=== PATIENT | female | born 1970 | race Caucasian/White ===

== ENCOUNTER 2019-09-01 12:59 | Emergency (ER) | payer OTHER ==
[~2019-09-01 12:59] MED LIST: Acetaminophen 500 MG TAB ONE; Ondansetron PF 4 MG/2 ML Vial ONE
[2019-09-01] MEDS ORDERED: Ketorolac Tromethamine 30 MG/ML VIAL ONE (13:29)
[2019-09-01 13:53] LABS: ALT (SGPT) 18 U/L (8-55); AST (SGOT) 13 U/L (5-34); Albumin 4.9 g/dL (3.5-5.0); Alkaline Phosphatase 90 U/L (40-110); Anion Gap 18 mmol/L (10-20); BUN (Urea Nitrogen) 8 mg/dL (7.0-18.7); Bilirubin, Total 0.8 mg/dL (0.2-1.2); Calc. Creatinine Clearance 0 mL/min (70-130); Calcium 10.1 mg/dL (7.8-10.44); Carbon Dioxide 21 mmol/L (22-29); Chloride 105 mmol/L (98-107); Estimated GFR-MDRD 78; Glucose 89 mg/dL (70-105); Potassium 3.5 mmol/L (3.5-5.1); Protein, Total 7.9 g/dL (6.0-8.3); Sodium 140 mmol/L (136-145)
[2019-09-01 13:54] LABS: CKMB 0.4 ng/mL (0-6.6); Troponin I Less than 0.010 ng/mL (< 0.028)
[2019-09-01 13:58] LABS: Hemoglobin 14.5 g/dL (12.0-16.0); Red Blood Cell (RBC) Count 4.63 mill/uL (4.20-5.40); White Blood Cell (WBC) Count 10.2 thou/uL (4.8-10.8)
[2019-09-01 13:59] LABS: #Lymphocytes 3.8 thou/uL (1.20-3.40); #Monocytes 0.5 thou/uL (0.11-0.59); #Neutrophils 5.7 thou/uL (1.40-6.50); %Basophils 1.2 % (0.0-1.0); %Lymphocytes 37.5 % (21.0-51.0); %Monocytes 4.6 % (0.0-10.0); %Neutrophils 55.7 % (42.0-75.0); Mean Corpuscular HGB CONC 32.1 g/dL (32.0-36.0); Mean Corpuscular Hemoglobin 31.3 pg (27.0-31.0); Mean Corpuscular Volume 97.6 fL (78.0-98.0); Mean Platelet Volume 8.2 fL (7.4-10.4); Platelet Count 298 thou/uL (130-400)
[2019-09-01 14:00] LABS: #Basophils 0.1 thou/uL (0.0-0.2); #Eosinphils 0.1 thou/uL (0.0-0.7)
--- NOTE | 2019-09-01 15:24 | RAD ---
PA AND LATERAL CHEST: Date: 09/01/19 HISTORY: Chest pain x2 days. FINDINGS: Heart size and mediastinum are within normal limits. Lungs are clear of infiltrates. No significant b patricia findings. IMPRESSION: No active intrathoracic disease. POS: [facility]
== END 2019-09-01 18:00 | disposition home or self-care (01) ==
LOC: MADERS 12:59
DX: J11.1 Influenza due to unidentified influenza virus with other respiratory manifestations (principal); F41.9 Anxiety disorder, unspecified; K74.60 Unspecified cirrhosis of liver
CPT/HCPCS: 71046; 80053; 82553; 84484; 85025; 87081; 87430; 87804; 96374; 96375; J1885; J2405

== ENCOUNTER 2020-09-05 14:19 | Emergency (ER) | payer OTHER ==
[2020-09-05 14:47] LABS: Bilirubin Negative (Negative); Blood, Urine Negative (Negative); Clarity Clear (Clear); Glucose, Urine (Dipstick) Negative (Negative); Ketone, Urine Negative (Negative); Leukocyte Negative (Negative); Nitrite Negative (Negative); Protein, Urine (Dipstick) Negative (Neg-Trace); Urobilinogen 0.2 mg/dL (Less than 2); pH, Urine 5.5 (5.0-9.0)
[2020-09-05] MEDS ORDERED: Ondansetron ODT 4 MG TAB ONE (15:22)
[2020-09-05] MEDS ORDERED: Ketorolac Tromethamine 60 MG/2 ML VIAL ONE (15:22)
--- NOTE | 2020-09-05 15:32 | RAD ---
CHEST 2 VIEWS: Date: 09/05/2020 HISTORY: Chest pain, recent flu. FINDINGS: Heart size is within normal limits. The lungs are clear of acute process. The lateral aspect of the r ight chest wall is not completely included. No confluent pneumonia, overt edema, or pleural effusion. IMPRESSION: No significant acute intrathoracic disease. POS: [facility]
--- NOTE | 2020-09-05 15:37 | CT ---
CT ABDOMEN AND PELVIS PERFORMED WITHOUT CONTRAST ENHANCEMENT: Date: 09/05/2020 HISTORY: Right CVA pain with radiation. FINDINGS: The lung bases are clear. The liver, spleen, pancreas, and gallbladder regions appear unremarkable given the limitations of a n oncontrast study. Right and left adrenal glands, and right and left kidneys are normal in size. No renal calculi. No ob struction. No significant periaortic or mesenteric adenopathy. The appendix is normal in size. It is more retrocecal in location. CT of pelvis was performed without contrast enhancement. No adenopathy, mass, or free fluid. No significant bony findings. IMPRESSION: 1. Normal appendix. 2. No renal or ureteral calculi. POS: [facility]
[2020-09-05] MEDS ORDERED: Dexamethasone 10 MG/ML VIAL ONE (15:44)
== END 2020-09-05 15:54 | disposition home or self-care (01) ==
LOC: MADERS 14:19
DX: M54.5 Low back pain (principal); R11.2 Nausea with vomiting, unspecified; M35.00 Sjogren syndrome, unspecified; K50.90 Crohn's disease, unspecified, without complications; G62.9 Polyneuropathy, unspecified; F17.210 Nicotine dependence, cigarettes, uncomplicated; M48.00 Spinal stenosis, site unspecified; Z79.899 Other long term (current) drug therapy; Z86.73 Personal history of transient ischemic attack (TIA), and cerebral infarction without residual deficits
CPT/HCPCS: 71046; 74176; 81003; 96372; J1100; J1885; Q0162

== ENCOUNTER 2021-05-01 07:50 | Outpatient (CLI) | payer OTHER | END 2021-05-01 07:51 | disposition home or self-care (01) | LOC: MADULT 07:50 | PROVIDERS: ATTEND Internal Medicine Gastroenterology | DX: R10.9 Unspecified abdominal pain (principal) | CPT/HCPCS: 93975 ==